=== PATIENT | male | born 1985 | race African-American/Black ===

== ENCOUNTER 2023-09-09 12:53 | Emergency (ER) | payer SELFPAY ==
[2023-09-09] MEDS ORDERED: Acetaminophen 500 MG Tab PO ONE (13:20)
[2023-09-09] MEDS ORDERED: Ibuprofen 600 MG Tab PO ONE (13:20)
[2023-09-09 14:04] LABS: CORONAVIRUS COVID-19 NAA NEGATIVE (NEGATIVE); INFLUENZA A NAA POSITIVE (NEGATIVE); INFLUENZA B NAA NEGATIVE (NEGATIVE)
== END 2023-09-09 15:03 | disposition home or self-care (01) ==
LOC: MW.ED 12:53
DX: J10.1 Influenza due to other identified influenza virus with other respiratory manifestations (principal); Z20.822 Contact with and (suspected) exposure to COVID-19
CPT/HCPCS: 0240U; 99283; A9270

== ENCOUNTER 2024-03-30 23:24 | Emergency (ER) | payer BC ==
[2024-03-31] MEDS: Penicillin G Benzathine 1,200,000 Units/2 ML Syringe IM ONE (03:00)
[2024-03-31 03:34] LABS: C. TRACHOMATIS BY PCR NOT DETECTED; N. GONORRHOEAE BY PCR NOT DETECTED
== END 2024-03-31 04:24 | disposition left against medical advice (07) ==
LOC: MW.ED 23:24
DX: Z20.2 Contact with and (suspected) exposure to infections with a predominantly sexual mode of transmission (principal)
CPT/HCPCS: 36415; 86592; 86706; 86803; 87340; 87389; 87491; 87591; 96372; 99283; J0561

== ENCOUNTER 2025-03-10 18:29 | Emergency (ER) | payer BC ==
[2025-03-10] MEDS: Dexamethasone 4 MG Tab PO ONE (20:21)
== END 2025-03-10 20:36 | disposition home or self-care (01) ==
LOC: MW.ED 18:29
DX: M51.360 Other intervertebral disc degeneration, lumbar region with discogenic back pain only (principal); Z79.899 Other long term (current) drug therapy; Z75.3 Unavailability and inaccessibility of health-care facilities
CPT/HCPCS: 72131; 99283; J8540